=== PATIENT | male | born 1990 | race Caucasian/White ===

== ENCOUNTER 2016-08-29 00:43 | Emergency (ER) | payer OTHER ==
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
--- NOTE | 2016-08-29 01:55 | ED ORDER SUMMARY ---
..... Patient: ANGELICA WILLIAM OrderSheet [facility] VisitID: [id number] [place] [address] 26y, M Registration Date/Time: 08/29/2016 ORDER SHEET Weight: 83.9 kg (stated) Allergies: Benadryl, Penicillins GENERAL ORDERS: Urine Drug Screen Urgent (01:03 08/29/2016 Anabela Nance verbal order read back to Cassia ELDRIDGE) (1:04 Jena Funeral Counselor) Breathalyzer (01:43 08/29/2016 Cassia ELDRIDGE) (1:43 Anabela Nance) MEDICATION ORDERS: IV FLUIDS: ORDER SHEET NOTES: [Electronically signed by Fili Moreno R.N. (02:03 08/29/2016)] [Electronically signed by Beck Rosales DO (09:08 08/29/2016)] [Electronically locked/signed by Fili Moreno R.N. (02:03 08/29/2016)]
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
--- NOTE | 2016-08-29 01:55 | ED ORDER SUMMARY ---
..... Patient: ANGELICA WILLIAM OrderSheet [facility] VisitID: [id number] [place] [address] 26y, M Registration Date/Time: 08/29/2016 ORDER SHEET Weight: 83.9 kg (stated) Allergies: Benadryl, Penicillins GENERAL ORDERS: Urine Drug Screen Urgent (01:03 08/29/2016 Anabela Nance verbal order read back to Cassia ELDRIDGE) (1:04 Jena Dermatologist And Dermatopathologist) Breathalyzer (01:43 08/29/2016 Cassia ELDRIDGE) (1:43 Anabela Nance) MEDICATION ORDERS: IV FLUIDS: ORDER SHEET NOTES: [Electronically signed by Fili Moreno R.N. (02:03 08/29/2016)] [Electronically signed by Beck Rosales DO (09:08 08/29/2016)] [Electronically locked/signed by Fili Moreno R.N. (02:03 08/29/2016)]
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
--- NOTE | 2016-08-29 09:09 | ED MAR SUMMARY ---
..... Medication Administration Record [facility] [address] [place], [place] [id number] Patient: ANGELICA WILLIAM Visit ID: [id number] 26y, M Weight: 83.9 kg Height/Length: 69 in BMI: 27.3 ALLERGIES: Penicillins, Benadryl
--- NOTE | 2016-08-29 09:09 | ED MAR SUMMARY ---
..... Medication Administration Record [facility] [address] [place], [place] [id number] Patient: ANGELICA WILLIAM Visit ID: [id number] 26y, M Weight: 83.9 kg Height/Length: 69 in BMI: 27.3 ALLERGIES: Penicillins, Benadryl
--- NOTE | 2016-08-29 09:09 | ED DISCHARGE INSTRUCTIONS ---
Patient: ANGELICA WILLIAM General Instructions [facility] VisitID: [id number] [place] [address] 26y, M Registration Date/Time: 08/29/2016 Uncomplicated alcohol intoxication. INSTRUCTIONS Rest. Do not work today. Do not smoke. Seek medical help to quit smoking. No alcohol until released. (YOU HAVE ELECTED NOT TO HAVE ADDITIONAL TESTS AND UNDERSTAND THAT I CANNOT RULE OUT OTHER PROBLEMS WITHOUT THESE TEST). Warnings: Further evaluation is necessary. It is very important to follow up with a physician. GENERAL WARNINGS: Return or contact your physician immediately if your condition worsens or changes unexpectedly, if not improving as expected, or if other problems arise. Follow-up: Follow up with your doctor tomorrow. ADDITIONAL INFORMATION Alcohol Intoxication Alcohol intoxication occurs when you drink alcohol faster than your liver can remove it from your system. Alcohol intoxication affects your judgment and coordination. Very high blood alcohol levels can cause coma, very slow breathing and even . If you drink alcohol every day, this may gradually cause permanent damage to your liver, brain, heart, pancreas and other organs. Alcohol use during may cause permanent damage to the growing baby. Home Care: Do not drink any more alcohol. DO NOT DRIVE until all effects of the alcohol have worn off. Get lots of rest over the next few days. Drink plenty of water and other non-alcoholic liquids. Try to eat regular meals. If you have been drinking heavily on a daily basis, you may go through alcohol withdrawl. This is also called the shakes or DTs. The usual symptoms last 3 to 4 days and may include nervousness, shakiness, nausea, sweating or sleeplessness. During this time, it is best that you stay with family or friends who can help and support you. You can also admit yourself to a residential detox program. If your symptoms are severe, contact your doctor for medicines to help. Follow Up: If alcohol is causing a problem in your life, these and other organizations can help you: Alcoholics Anonymous offers support through a self-help fellowship. There are no dues or fees. See the Yellow Pages and call for time and place of meetings. www.aa.org [employer]-Anod[employer] offers support to families of alcohol users. 738.530.3186 www.al-anon.org National [place] On Alcoholism And Drug Dependence 022-802-5480 www.ncadd.org There are also inpatient or residential alcohol detox programs. Check the Internet or phonebook Yellow Pages under Drug Abuse & Treatment Centers. Get Prompt Medical Attention if any of the following occur: there) How To Quit Smoking Smoking is one of the hardest habits to break. About half of all those who have ever smoked have been able to quit, and most of those (about 70%) who still smoke want to quit. Here are some of the best ways to stop smoking. Keep Trying: It takes most smokers about 8 tries before they are finally able to fully quit. So, the more often you try and fail, the better your chance of quitting the next time! So, don't give up! Go Cold [place]: Most ex-smokers quit cold turkey. Trying to cut back gradually doesn't seem to work as well, perhaps because it continues the smoking habit. Also, it is possible to fool yourself by inhaling more while smoking fewer cigarettes. This results in the same amount of nicotine in your body! Get Support: Support programs can make an important difference, especially for the heavy smoker. These groups offer lectures, methods to change your behavior and peer support. Call the free national Quitline for more information. 775-CFPX-OHC (200-151-8212). Low-cost or free programs are offered by many hospitals, local chapters of the [place] [employer] (885-659-0943) and the [place] [employer] (170-249-4506). Support at home is important too. Non-smokers can help by offering praise and encouragement. If the smoker fails to quit, encourage them to try again! Bhmr-Uxv-Nuglzjn Medicines: For those who can't quit on their own, Nicotine Replacement Therapy (NRT) may make quitting much easier. Certain aids such as the nicotine patch, gum and lozenge are available without a prescription. However, it is best to use these under the guidance of your doctor. The skin patch provides a steady supply of nicotine to the body. Nicotine gum and lozenge gives temporary bursts of low levels of nicotine. Both methods take the edge off the craving for cigarettes. WARNING: If you feel symptoms of nicotine overdose, such as nausea, vomiting, dizziness, weakness, or fast heartbeat, stop using these and see your doctor. Prescription Medicines: After evaluating your smoking patterns and prior attempts at quitting, your doctor may offer a prescription medicine such as bupropion (Zyban, Wellbutrin), varenicline (Chantix, Champix), a niocotine inhaler or nasal spray. Each has its unique advantage and side effects which your doctor can review with you. Health Benefits Of Quitting: The benefits of quitting start right away and keep improving the longer you go without smokin minutes: blood pressure and pulse return to normal 8 hours: oxygen levels return to normal 2 days: ability to smell and taste begins to improve as damaged nerves start to regrow 2-3 weeks: circulation and lung function improves 1-9 months: decreased cough, congestion and shortness of breath; less tired 1 year: risk of heart attack decreases by half 5 years: risk of lung cancer decreases by half; risk of stroke becomes the same as a non-smoker For information about how to quit smoking, visit the following links: National Cancer [place] , Clearing the Air, Quit Smoking Today - an online booklet. http://www.smokefree.gov/pubs/clearing_the_air.pdf Smokefree.gov http://smokefree.gov/ QuitNet http://www.quitnet.com/ You have been given the following additional information: Alcohol Intoxication Smoking Cessation Rest. Do not work today. (Electronically signed by Beck Rosales DO 08/29/2016 9:08)
--- NOTE | 2016-08-29 09:09 | ED MED RECONCILIATION SUMMARY ---
Patient: ANGELICA WILLIAM Medication Reconciliation Report [facility] VisitID: [id number] [address] [place] [address] 26y, M Registration Date/Time: 08/29/2016 Weight: 83.9 kg Height/Length: 69 in. BMI: 27.3 ALLERGIES: Benadryl, Penicillins The patient's Home Medications are listed below: THE FOLLOWING MEDICATIONS NEED TO BE RECONCILED: Sertraline HCl Oral The source(s) of the original Home Medication information: patient The following Medications were given to the patient in the Emergency Department: None. The following Medications were prescribed to the patient: None.
--- NOTE | 2016-08-29 09:09 | ED MED RECONCILIATION SUMMARY ---
Patient: ANGELICA WILLIAM Medication Reconciliation Report [facility] VisitID: [id number] [address] [place] [address] 26y, M Registration Date/Time: 08/29/2016 Weight: 83.9 kg Height/Length: 69 in. BMI: 27.3 ALLERGIES: Benadryl, Penicillins The patient's Home Medications are listed below: THE FOLLOWING MEDICATIONS NEED TO BE RECONCILED: Sertraline HCl Oral The source(s) of the original Home Medication information: patient The following Medications were given to the patient in the Emergency Department: None. The following Medications were prescribed to the patient: None.
--- NOTE | 2016-08-29 09:09 | ED DISCHARGE INSTRUCTIONS ---
Patient: ANGELICA WILLIAM General Instructions [facility] VisitID: [id number] [place] [address] 26y, M Registration Date/Time: 08/29/2016 Uncomplicated alcohol intoxication. INSTRUCTIONS Rest. Do not work today. Do not smoke. Seek medical help to quit smoking. No alcohol until released. (YOU HAVE ELECTED NOT TO HAVE ADDITIONAL TESTS AND UNDERSTAND THAT I CANNOT RULE OUT OTHER PROBLEMS WITHOUT THESE TEST). Warnings: Further evaluation is necessary. It is very important to follow up with a physician. GENERAL WARNINGS: Return or contact your physician immediately if your condition worsens or changes unexpectedly, if not improving as expected, or if other problems arise. Follow-up: Follow up with your doctor tomorrow. ADDITIONAL INFORMATION Alcohol Intoxication Alcohol intoxication occurs when you drink alcohol faster than your liver can remove it from your system. Alcohol intoxication affects your judgment and coordination. Very high blood alcohol levels can cause coma, very slow breathing and even . If you drink alcohol every day, this may gradually cause permanent damage to your liver, brain, heart, pancreas and other organs. Alcohol use during may cause permanent damage to the growing baby. Home Care: Do not drink any more alcohol. DO NOT DRIVE until all effects of the alcohol have worn off. Get lots of rest over the next few days. Drink plenty of water and other non-alcoholic liquids. Try to eat regular meals. If you have been drinking heavily on a daily basis, you may go through alcohol withdrawl. This is also called the shakes or DTs. The usual symptoms last 3 to 4 days and may include nervousness, shakiness, nausea, sweating or sleeplessness. During this time, it is best that you stay with family or friends who can help and support you. You can also admit yourself to a residential detox program. If your symptoms are severe, contact your doctor for medicines to help. Follow Up: If alcohol is causing a problem in your life, these and other organizations can help you: Alcoholics Anonymous offers support through a self-help fellowship. There are no dues or fees. See the Yellow Pages and call for time and place of meetings. www.aa.org [employer]-An[employer] offers support to families of alcohol users. 346.286.1175 www.al-anon.org National [place] On Alcoholism And Drug Dependence 382-557-8461 www.ncadd.org There are also inpatient or residential alcohol detox programs. Check the Internet or phonebook Yellow Pages under Drug Abuse & Treatment Centers. Get Prompt Medical Attention if any of the following occur: there) How To Quit Smoking Smoking is one of the hardest habits to break. About half of all those who have ever smoked have been able to quit, and most of those (about 70%) who still smoke want to quit. Here are some of the best ways to stop smoking. Keep Trying: It takes most smokers about 8 tries before they are finally able to fully quit. So, the more often you try and fail, the better your chance of quitting the next time! So, don't give up! Go Cold [place]: Most ex-smokers quit cold turkey. Trying to cut back gradually doesn't seem to work as well, perhaps because it continues the smoking habit. Also, it is possible to fool yourself by inhaling more while smoking fewer cigarettes. This results in the same amount of nicotine in your body! Get Support: Support programs can make an important difference, especially for the heavy smoker. These groups offer lectures, methods to change your behavior and peer support. Call the free national Quitline for more information. 002-BQEG-NAB (081-302-2129). Low-cost or free programs are offered by many hospitals, local chapters of the [place] [employer] (002-390-7844) and the [place] (148-635-5260). Support at home is important too. Non-smokers can help by offering praise and encouragement. If the smoker fails to quit, encourage them to try again! Wguo-Ikg-Fpqzbxp Medicines: For those who can't quit on their own, Nicotine Replacement Therapy (NRT) may make quitting much easier. Certain aids such as the nicotine patch, gum and lozenge are available without a prescription. However, it is best to use these under the guidance of your doctor. The skin patch provides a steady supply of nicotine to the body. Nicotine gum and lozenge gives temporary bursts of low levels of nicotine. Both methods take the edge off the craving for cigarettes. WARNING: If you feel symptoms of nicotine overdose, such as nausea, vomiting, dizziness, weakness, or fast heartbeat, stop using these and see your doctor. Prescription Medicines: After evaluating your smoking patterns and prior attempts at quitting, your doctor may offer a prescription medicine such as bupropion (Zyban, Wellbutrin), varenicline (Chantix, Champix), a niocotine inhaler or nasal spray. Each has its unique advantage and side effects which your doctor can review with you. Health Benefits Of Quitting: The benefits of quitting start right away and keep improving the longer you go without smokin minutes: blood pressure and pulse return to normal 8 hours: oxygen levels return to normal 2 days: ability to smell and taste begins to improve as damaged nerves start to regrow 2-3 weeks: circulation and lung function improves 1-9 months: decreased cough, congestion and shortness of breath; less tired 1 year: risk of heart attack decreases by half 5 years: risk of lung cancer decreases by half; risk of stroke becomes the same as a non-smoker For information about how to quit smoking, visit the following links: National Cancer [place] , Clearing the Air, Quit Smoking Today - an online booklet. http://www.smokefree.gov/pubs/clearing_the_air.pdf Smokefree.gov http://smokefree.gov/ QuitNet http://www.quitnet.com/ You have been given the following additional information: Alcohol Intoxication Smoking Cessation Rest. Do not work today. (Electronically signed by Beck Rosales DO 08/29/2016 9:08)
== END 2016-08-29 02:00 | disposition home or self-care (01) ==
LOC: ED SRH 00:43
DX: F10.120 Alcohol abuse with intoxication, uncomplicated (principal); Z88.0 Allergy status to penicillin; Z88.8 Allergy status to other drugs, medicaments and biological substances
CPT/HCPCS: 92760; 92761; 92762; 92763; 92764; 92765; 92766; 92767